=== PATIENT | female | born 1950 | race Caucasian/White ===

== ENCOUNTER 2020-01-10 09:00 | Outpatient (CLI) | payer MEDICARE, OTHER, SELFPAY ==
--- NOTE | 2020-01-10 09:32 | MR_ITS ---
WS: [id number] MRI HEAD WITH CONTRAST TECHNIQUE: Sagittal T1, T2 axial, T2 axial FLAIR, axial susceptibility weighted imaging, axial diffus ion weighted images, and coronal T2 images were obtained. Pre and post-T1 axial and post T1 coronal i mages. ADC and FSPGR images. CLINICAL INFORMATION: DEMYELINATING DISEASE COMPARISON: MRI [id number] FINDINGS: No evidence of restricted diffusion to suggest acute ischemia. Ventricular system and basal cisterns are patent. Moderate patchy supra and infratentorial white matter changes consistent with demyelinati ng disease. The number and distribution of lesions is not significantly changed. No enhancing lesions to indicate active disease. Mild T1 hypointense lesion load. No significant thinning of the corpus c allosum. Moderate parenchymal volume loss unchanged. Normal vascular flow voids at the skull base. Normal opti c chiasm and pituitary infundibulum. MR/MR head wo/w con [id number] IMPRESSION: 1. Moderate patchy supra and infratentorial white matter changes consistent wi th history of demyelinating disease. 2. Number and distribution of lesions is not significantly changed. 3. No enhancing lesions to indicate active disease. 4. Moderate parenchymal volume loss. No significant callosal atrophy. 5. Mild T1 hypointense lesion load.
[2020-01-10 10:50] LABS: Blood Urea Nitrogen 21 mg/dL (8-23); Glomerular Filtration Rate 49.2 mL/min (90-130)
== END 2020-01-10 09:01 | disposition home or self-care (01) ==
LOC: RADWPI 09:05
PROVIDERS: Visit Provider Specialist
DX: G37.9 Demyelinating disease of central nervous system, unspecified (principal)
CPT/HCPCS: 70553; 82565; 84520

== ENCOUNTER → 2020-02-03 09:43 | Outpatient (BNVA) | payer MEDICARE, OTHER, SELFPAY | PROVIDERS: Visit Provider Specialist | DX: G43.711 Chronic migraine without aura, intractable, with status migrainosus (principal); G37.8 Other specified demyelinating diseases of central nervous system; M54.17 Radiculopathy, lumbosacral region | CPT/HCPCS: 64615; 99214; J0585 ==

== ENCOUNTER → 2020-04-27 09:51 | Outpatient (BNVA) | payer MEDICARE, OTHER, SELFPAY | PROVIDERS: Visit Provider Specialist | DX: G43.711 Chronic migraine without aura, intractable, with status migrainosus (principal); G37.8 Other specified demyelinating diseases of central nervous system | CPT/HCPCS: 64615; J0585 ==

== ENCOUNTER → 2021-02-08 09:52 | Outpatient (BNVA) | payer MEDICARE, SELFPAY | PROVIDERS: Visit Provider Specialist | DX: G43.711 Chronic migraine without aura, intractable, with status migrainosus (principal); G37.8 Other specified demyelinating diseases of central nervous system; I67.82 Cerebral ischemia | CPT/HCPCS: 64615; J0585 ==

== ENCOUNTER → 2021-05-03 11:25 | Outpatient (BNVA) | payer MEDICARE, SELFPAY | PROVIDERS: Visit Provider Specialist | DX: G43.709 Chronic migraine without aura, not intractable, without status migrainosus (principal); G37.8 Other specified demyelinating diseases of central nervous system; I67.82 Cerebral ischemia; M79.7 Fibromyalgia | CPT/HCPCS: 64615; 99213; J0585 ==

== ENCOUNTER → 2021-07-26 12:20 | Outpatient (BNVA) | payer MEDICARE, SELFPAY | PROVIDERS: Visit Provider Specialist | DX: G43.709 Chronic migraine without aura, not intractable, without status migrainosus (principal) | CPT/HCPCS: 64615; J0585 ==

== ENCOUNTER → 2021-11-01 10:04 | Outpatient (BNVA) | payer MEDICARE, SELFPAY | PROVIDERS: Visit Provider Specialist | DX: G43.709 Chronic migraine without aura, not intractable, without status migrainosus (principal); F33.2 Major depressive disorder, recurrent severe without psychotic features | CPT/HCPCS: 64615; J0585 ==

== ENCOUNTER → 2022-01-24 11:02 | Outpatient (BNVA) | payer MEDICARE, SELFPAY | PROVIDERS: Visit Provider Specialist | DX: G43.711 Chronic migraine without aura, intractable, with status migrainosus (principal) | CPT/HCPCS: 64615; J0585 ==

== ENCOUNTER → 2022-04-18 09:01 | Outpatient (BNVA) | payer MEDICARE, SELFPAY | PROVIDERS: Visit Provider Specialist | DX: G43.711 Chronic migraine without aura, intractable, with status migrainosus (principal); G37.8 Other specified demyelinating diseases of central nervous system; I67.82 Cerebral ischemia; M79.7 Fibromyalgia | CPT/HCPCS: 64615; 99213; 99214; J0585 ==

== ENCOUNTER → 2022-07-11 09:04 | Outpatient (BNVA) | payer MEDICARE, SELFPAY | PROVIDERS: Visit Provider Specialist | DX: G43.711 Chronic migraine without aura, intractable, with status migrainosus (principal) | CPT/HCPCS: 64615; J0585 ==

== ENCOUNTER → 2022-10-03 09:31 | Outpatient (BNVA) | payer MEDICARE, SELFPAY | PROVIDERS: Visit Provider Specialist | DX: G43.711 Chronic migraine without aura, intractable, with status migrainosus (principal) | CPT/HCPCS: 64615; 95911; J0585 ==

== ENCOUNTER → 2023-01-09 09:41 | Outpatient (BNVA) | payer MEDICARE, SELFPAY | PROVIDERS: Visit Provider Specialist | DX: G43.711 Chronic migraine without aura, intractable, with status migrainosus (principal); G37.8 Other specified demyelinating diseases of central nervous system; I67.82 Cerebral ischemia; M54.17 Radiculopathy, lumbosacral region; M79.7 Fibromyalgia | CPT/HCPCS: 64615; 99213; J0585 ==

== ENCOUNTER → 2023-04-03 09:53 | Outpatient (BNVA) | payer MEDICARE, SELFPAY | PROVIDERS: Referring Provider Specialist; Visit Provider Specialist | DX: G43.711 Chronic migraine without aura, intractable, with status migrainosus (principal); M54.17 Radiculopathy, lumbosacral region; G37.8 Other specified demyelinating diseases of central nervous system; I67.82 Cerebral ischemia; M79.7 Fibromyalgia | CPT/HCPCS: 64615; 99214; J0585 ==

== ENCOUNTER → 2023-07-03 09:49 | Outpatient (BNVA) | payer MEDICARE, SELFPAY | PROVIDERS: Visit Provider Specialist | DX: G43.711 Chronic migraine without aura, intractable, with status migrainosus (principal) | CPT/HCPCS: 64615; J0585 ==

== ENCOUNTER → 2023-10-02 09:42 | Outpatient (BNVA) | payer MEDICARE, SELFPAY | PROVIDERS: Visit Provider Specialist | DX: G43.711 Chronic migraine without aura, intractable, with status migrainosus (principal); M79.7 Fibromyalgia | CPT/HCPCS: 64615; 99213; J0585 ==

== ENCOUNTER → 2024-01-01 09:42 | Outpatient (BNVA) | payer MEDICARE, SELFPAY | PROVIDERS: Visit Provider Specialist | DX: G43.711 Chronic migraine without aura, intractable, with status migrainosus (principal); R25.2 Cramp and spasm; R11.0 Nausea | CPT/HCPCS: 64615; 99213; J0585 ==

== ENCOUNTER → 2024-04-01 10:16 | Outpatient (BNVA) | payer MEDICARE, SELFPAY | PROVIDERS: Visit Provider Specialist | DX: G43.711 Chronic migraine without aura, intractable, with status migrainosus (principal) | CPT/HCPCS: 64615; J0585 ==

== ENCOUNTER → 2024-07-15 09:45 | Outpatient (BNVA) | payer MEDICARE, SELFPAY | PROVIDERS: Visit Provider Specialist | DX: G43.711 Chronic migraine without aura, intractable, with status migrainosus (principal) | CPT/HCPCS: 64615; J0585 ==

== ENCOUNTER → 2024-10-15 08:46 | Outpatient (BNVA) | payer MEDICARE, SELFPAY | PROVIDERS: Visit Provider Specialist | DX: G43.711 Chronic migraine without aura, intractable, with status migrainosus (principal) | CPT/HCPCS: 64615; J0585 ==

== ENCOUNTER → 2025-01-14 11:09 | Outpatient (BNVA) | payer MEDICARE, SELFPAY | PROVIDERS: Visit Provider Specialist | DX: G43.711 Chronic migraine without aura, intractable, with status migrainosus (principal) | CPT/HCPCS: 64615; J0585 ==

== ENCOUNTER → 2025-04-15 11:18 | Outpatient (BNVA) | payer MEDICARE, SELFPAY | PROVIDERS: Visit Provider Specialist | DX: G43.711 Chronic migraine without aura, intractable, with status migrainosus (principal); I67.82 Cerebral ischemia; M79.7 Fibromyalgia | CPT/HCPCS: 64615; 99213; J0585; J9999 ==

== ENCOUNTER 2025-04-22 10:44 | Outpatient (CLI) | payer MEDICARE, SELFPAY ==
--- NOTE | 2025-04-22 11:00 | MR_ITS ---
WS: [id number] MRI HEAD WITHOUT CONTRAST TECHNIQUE: Sagittal T1, T2 axial, T2 axial FLAIR, axial and coronal T1 images, axial susceptibility weighted imaging, axial diffusion weighted images, and coronal T2 images were obtained. CLINICAL INFORMATION: G37.8 - Other specified demyelinating diseases of central... COMPARISON: MRI 2020 FINDINGS: No evidence of restricted diffusion to suggest acute ischemia. Ventricular system and basal cisterns are patent. No hemosiderin on susceptibility-weighted images. Normal optic chiasm and pituitary infundibulum. Mild to moderate symmetric atrophy temporal lobes and hippocampal formations. Patchy supra and infratentorial white matter changes. Patchy white matter changes are stable compared to 2020. No significant progression considering differences in technique. Moderate parenchymal volume loss. Mild T1 hypointense lesion lobe. 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 MR/MR head wo con* [id number] IMPRESSION: 1. No significant changes since 2020 2. No restricted diffusion to suggest acute ischemia. 3. Patchy supra and infratentorial white matter changes are stable compared to 2020. No significant progression considering differences in technique 4. Mild T1 hypointense lesion lobe. 5. 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 6. Moderate parenchymal volume loss.
== END 2025-04-22 10:45 | disposition home or self-care (01) ==
LOC: RAD 10:47
PROVIDERS: Visit Provider Specialist
DX: I67.82 Cerebral ischemia (principal); G37.89 Other specified demyelinating diseases of central nervous system; R93.0 Abnormal findings on diagnostic imaging of skull and head, not elsewhere classified; G31.89 Other specified degenerative diseases of nervous system
CPT/HCPCS: 70551

== ENCOUNTER → 2025-07-21 10:36 | Outpatient (BNVA) | payer MEDICARE, SELFPAY | PROVIDERS: Visit Provider Specialist | DX: G43.711 Chronic migraine without aura, intractable, with status migrainosus (principal) | CPT/HCPCS: 64615; 99213; J0585; J9999 ==

== ENCOUNTER → 2025-10-27 09:19 | Outpatient (BNVA) | payer MEDICARE, SELFPAY | PROVIDERS: Visit Provider Specialist | DX: G43.711 Chronic migraine without aura, intractable, with status migrainosus (principal) | CPT/HCPCS: 64615; J0585; J9999 ==